=== PATIENT | female | born 1965 | race Caucasian/White ===

== ENCOUNTER → 2018-03-04 | Outpatient (CLI) | payer BC ==
[2018-03-04 12:14] LABS: BILIRUBIN,URINE NEGATIVE (NEGATIVE); CLARITY,URINE CLEAR; COLOR,URINE AMBER; GLUCOSE, URINE (UA) NEGATIVE (NEGATIVE); KETONES,URINE NEGATIVE (NEGATIVE); LEUKOCYTE ESTERASE ,URINE NEGATIVE (NEGATIVE); NITRITE,URINE NEGATIVE (NEGATIVE); PH,URINE 6.5 (5-9); PROTEIN,URINE 2+ (NEGATIVE); UROBILINOGEN,URINE NORMAL (NORMAL)
[2018-03-04 12:14] LABS: BASOPHILS # (AUTO) 0.1 10^3/uL (0.0-0.1); BASOPHILS % (AUTO) 0 % (0-10); EOSINOPHILS # (AUTO) 0.1 10^3/uL (0.0-0.3); EOSINOPHILS % (AUTO) 1 % (0-10); HEMATOCRIT 44 % (35-52); HEMOGLOBIN 14.7 G/DL (11.5-16.0); LYMPHOCYTES # (AUTO) 1.7 X 10^3 (1.0-4.0); LYMPHOCYTES % (AUTO) 9 % (12-44); MEAN CORPUSCULAR HEMOGLOBIN 30 PG (25-34); MEAN CORPUSCULAR HGB CONC 34 G/DL (32-36); MEAN CORPUSCULAR VOLUME 90 FL (80-99); MEAN PLATELET VOLUME 10.3 FL (7.4-10.4); MONOCYTES # (AUTO) 1.2 X 10^3 (0.0-1.0); MONOCYTES % (AUTO) 6 % (0-12); NEUTROPHILS # (AUTO) 16.3 X 10^3 (1.8-7.8); NEUTROPHILS % (AUTO) 84 % (42-75); PLATELET COUNT 257 10^3/uL (130-400); RED BLOOD COUNT 4.86 10^6/uL (4.35-5.85); RED CELL DISTRIBUTION WIDTH 12.3 % (10.0-14.5); WHITE BLOOD COUNT 19.4 10^3/uL (4.3-11.0)
[2018-03-04 12:32] LABS: OCCULT BLOOD STOOL IMMUNOASSAY POSITIVE (NEGATIVE)
[2018-03-04 12:37] LABS: ALANINE AMINOTRANSFERASE 26 U/L (0-55); ALBUMIN 4.6 GM/DL (3.2-4.5); ALKALINE PHOSPHATASE 52 U/L (40-136); BILIRUBIN,TOTAL 0.6 MG/DL (0.1-1.0); BUN/CREATININE RATIO 12; CALCIUM 10.2 MG/DL (8.5-10.1); CARBON DIOXIDE 25 MMOL/L (21-32); CHLORIDE 104 MMOL/L (98-107); CREATININE SERUM 0.98 MG/DL (0.60-1.30); GFR ESTIMATED 60; GLUCOSE 103 MG/DL (70-105); LIPASE 32 U/L (8-78); POTASSIUM 4.3 MMOL/L (3.6-5.0); SODIUM 138 MMOL/L (135-145); TOTAL PROTEIN 7.5 GM/DL (6.4-8.2)
[2018-03-04 12:38] LABS: BACTERIA,URINE FEW /HPF
--- NOTE | 2018-03-04 12:47 | Diagnostic Imaging Report ---
PROCEDURE: CT abdomen and pelvis without contrast. TECHNIQUE: Multiple contiguous axial images were obtained through the abdomen and pelvis without the use of intravenous contrast. INDICATION: Bright red blood per rectum, nausea and vomiting with fever. COMPARISON: 11/20/2006. FINDINGS: There is significant mural edema and circumferential thickening of the amtias of the descending colon to the proximal sigmoid level with pericolonic edema. This commences at the level of the splenic flexure. There is mild pericolonic edema and trace fluid along the colic gutter as well as small volume of anti-dependent pelvic free fluid at the cul-de-sac. While this may reflect infectious colitis, its distribution in a female patient of this age is suspicious for nonocclusive ischemic colitis. Aorta is normal in caliber. Luminal patency cannot be addressed owing to the absence of contrast. There is no identifiable calcified atherosclerotic plaque within the abdomen or pelvis. Remaining segments of small and large bowel were otherwise normal. There is no loculated collection or abscess. There is no bowel obstruction, free air or pneumatosis. The lung bases nonacute. Liver, gallbladder, spleen, adrenals and pancreas are unremarkable. The unobstructed kidneys appeared normal. The unopacified urinary bladder unremarkable. The uterus atrophic or absent. The previous complex cystic adnexal masses present on the prior have resolved. IMPRESSION: 1. Substantial left-sided colitis with small volume free fluid. Considerations would include infectious disease, inflammatory bowel disease or nonocclusive ischemic colitis in a female patient of this age. 2. No other acute-appearing abnormalities. Dictated by: Dictated on workstation # [id number]
[2018-03-04 12:56] LABS: BAND NEUTROPHILS 1 %; BASOPHILS % (MANUAL) 1 %; EOSINOPHILS % (MANUAL) 1 %; ERYTHROCYTE SEDIMENTATION RATE 6 MM/HR (0-30); LYMPHOCYTES % (MANUAL) 10 %; MONOCYTES % (MANUAL) 3 %; NEUTROPHILS % (MANUAL) 84 %; RBC MORPH NORMAL
== END ==
LOC: RAD 11:53
PROVIDERS: ATTEND Nurse Practitioner Family
DX: K52.9 Noninfective gastroenteritis and colitis, unspecified (principal); R11.2 Nausea with vomiting, unspecified
CPT/HCPCS: 36415; 74176; 80053; 81000; 82274; 83690; 85007; 85027; 85652; 87015; 87045; 87046; 87088; 87328; 87329; 87899

== ENCOUNTER → 2018-07-30 | Outpatient (CLI) | payer BC ==
--- NOTE | 2018-07-30 09:13 | Diagnostic Imaging Report ---
PROCEDURE: US Thyroid. TECHNIQUE: Multiple real-time grayscale images were obtained of the thyroid in various projections. INDICATION: Thyromegaly. No prior studies available for comparison. Right lobe of the thyroid measures 4.7 x 1.7 x 1.7 cm and the left lobe measures 4.3 x 1.7 x 1.5 cm. Isthmus is 3 mm in thickness. The left lobe demonstrate normal homogeneous echotexture. Right lobe does contain a circumscribed hypoechoic nodule in the midportion 1 cm in size. No microcalcifications are seen. No other masses are detected. IMPRESSION: 1 cm nodule mid right lobe without microcalcifications. A followup in six months is recommended to confirm stability. Dictated by: Dictated on workstation # [id number]
== END ==
LOC: RAD 08:28
PROVIDERS: ATTEND Nurse Practitioner Family
DX: E04.1 Nontoxic single thyroid nodule (principal); I10 Essential (primary) hypertension; E66.3 Overweight; R14.0 Abdominal distension (gaseous); R53.83 Other fatigue; Z68.26 Body mass index [BMI] 26.0-26.9, adult
CPT/HCPCS: 76536

== ENCOUNTER 2020-10-28 10:59 | Outpatient (CLI) | payer OTHER ==
[~2020-10-28] VITALS: Ht 160 cm; Wt 58.9 kg
[2020-10-28 10:55] VITALS: BP 130/73
[2020-10-28] MEDS ORDERED: diphenhydrAMINE 50 MG/ML INJ (BENADRYL) IV PRN (11:15)
[2020-10-28] MEDS ORDERED: EPINEPHrine INJECTION 1 MG/ML AMP IM PRN (11:15)
[2020-10-28] MEDS ORDERED: CASIRIVIMAB/IMDEVIMAB 1,200 MG in NS (IVPB) 250 ML IV ONE (11:15)
[2020-10-28 12:29] VITALS: BP 125/68
== END 2020-10-28 13:05 | disposition home or self-care (01) ==
LOC: INFUSION 10:59
PROVIDERS: ATTEND Nurse Practitioner Family
DX: Z23 Encounter for immunization (principal); U07.1 COVID-19